=== PATIENT | female | born 1935 | race Caucasian/White ===

== ENCOUNTER 2022-03-06 13:12 | Emergency (ER) | payer OTHER, SELFPAY ==
[2022-03-06 13:37] VITALS: BP 158/71; PULSE 71; RESP 18; TEMP 36.4; O2SAT 96; BMI 22.7
--- NOTE | 2022-03-06 16:08 | CRLHL7_ITS ---
For Patients: As a result of the Century Cures Act, medical imaging exams and procedure reports are released immediately into your electronic medical record. You may view this report before your referring provider. If you have questions, please contact your health care provider. INDICATION: Shortness of breath. TECHNIQUE: Chest 2 views. COMPARISON: None. FINDINGS: No focal consolidation, pleural effusion, or pneumothorax. Minimal linear atelectasis or scarring in the lung bases. Biapical pleural scarring. Normal heart size and pulmonary vascularity. Degenerative changes of the spine. Age-indeterminate superior endplate compression fracture of L1. IMPRESSION: 1. No acute cardiopulmonary findings. 2. Age-indeterminate superior endplate compression fracture of L1. Dictated by Nirmala Davey MD @ 03/06/2022 4:52:28 PM (Electronically Signed)
--- NOTE | 2022-03-06 16:09 | ED.GENADULT ---
HPI - General Adult General Chief complaint: Unspecified Complaint, Adult Stated complaint: Irregular breathing Time Seen by Provider: 03/06/22 16:05 History of Present Illness HPI narrative: Pt is a 87 year old woman who had COVID with mild symptoms at home treated with Paxlovid 4 weeks ago who comes in with 24 hours of nonproductive cough and fullness in her chest. No nausea, vomiting or diaphoresis. Cough is nonproductive with no hemoptysis. Pt has had no recent COVID expostures and otherwise has been feeling well since recovering from COVID. Pt states her symptoms are quite mild but would like to be checked out as [place] and wants to make sure that she is well. No overt chest pain. Related Data Allergies Allergy/AdvReac Type Severity Reaction Status Date / Time No Known Drug Allergies Allergy Verified 03/06/22 13:43 Review of Systems Status of ROS: Reports: 10 or more systems reviewed and unremarkable except as noted in History and below [facility] Medical History (Updated 03/06/22 @ 17:34 by Wai Anthony MD) Hypertension Social History Smoking Status: Never smoker Do you use any of these nicotine containing products: None Second hand tobacco smoke exposure: Yes How often do you have a drink containing alcohol: never How often do you have six or more drinks on one occasion: Never AUDIT-C Alcohol total score: 0 Non-prescribed substance use: denies use Exam Narrative: Exam Narrative: EXAM GENERAL: Patient appears comfortable and well. THYROID: no thyroid nodules or thyromegaly. LYMPH: No supraclavicular or cervical lymphadenopathy. SKIN: Visible skin seen during exam normal or with benign process only. EXT: No dependent lower extremity pedal edema. HEART: Regular rate and rhythm with no murmurs, rubs, or gallops. LUNGS: Clear to auscultation bilaterally with no crackles or wheezes. ABD: Soft, non tender, non distended. PSYCH: Good eye contact, speech is not pressured. Const: Vital Signs, click to edit/add: Vital Signs - 24 hr 03/06/22 13:37 Temperature 97.6 F Pulse Rate [Pulse Oximeter] 71 Respiratory Rate 18 Blood Pressure [Ri ght Upper Arm] 158/71 H Pulse Oximetry 96 Oxygen Delivery Me thod Room Air Course Course Hospital Course: Pt seen and examined. Chest X ray, CBC, BMP, Troponin, D-dimer ordered. COVID testing not repeated as symptoms are unlikely COVID and test may still be positive from previous illness. Reevaluation(s) Reevaluation #1: Pt's chest x ray is normal for acute infection per my and radiology review. Labs show mild anemia which is likely chronic. Negative troponin, D dimer and electrolytes. EKG showed no acute ST or T wave changes upon my review. Time: 17:30 Vital Signs Vital signs: Initial Vital Signs Temperature 97.6 F 03/06/22 13:37 Temperature Source Temporal Artery Scan 03/06/22 13:37 Pulse Rate 71 03/06/22 13:37 Pulse Rhythm 03/06/22 13:37 Respiratory Rate 18 03/06/22 13:37 Blood Pressure 158/71 H 03/06/22 13:37 Blood Pressure Mean 100 03/06/22 13:37 Blood Pressure Position Sitting 03/06/22 13:37 Pulse Oximetry 96 03/06/22 13:37 Oxygen Delivery Method 03/06/22 13:37 Vital Signs Temperature 97.6 F 03/06/22 13:37 Pulse Rate 71 03/06/22 13:37 Respiratory Rate 18 03/06/22 13:37 Blood Pressure 158/71 H 03/06/22 13:37 Pulse Oximetry 96 03/06/22 13:37 Oxygen Delivery Method 03/06/22 13:37 Temperature 97.6 F 03/06/22 13:37 Pulse Rate 71 03/06/22 13:37 Respiratory Rate 18 03/06/22 13:37 Blood Pressure 158/71 H 03/06/22 13:37 Pulse Oximetry 96 03/06/22 13:37 Oxygen Delivery Method 03/06/22 13:37 Medical Decision Making MDM Narrative Medical decision making narrative: Pt is an 87 year old woman who comes in with mild congestion 4 weeks after being treated for COVID. Vitals are stable with exeption of mildly elevated BP. Lab, EKG and Xrays reassuring. COVID testing not repeated. Pt feeling well and would like to go home. Differential Diagnosis Differential Diagnosis: Pnuemonia, URI, CHF, NE, Angian, Pneumothorax,PE Lab Data Labs: Lab Results 03/06/22 03/06/22 03/06/22 Range/Units 16:39 16:39 16:39 WBC 5.97 (4.50-11.00) K/uL RBC 3.72 L (4.00-5.20) m/uL Hgb 11.6 L (12.0-16.0) gm/dL Hct 34.9 (33.0-51.0) % MCV 94 (80-100) fL MCH 31 (26-34) pg MCHC 33 (32-36) gm/dL RDW Coeff of Jose 12.5 (11.5-15.5) % Plt Count 249 (140-440) K/uL Neut % (Auto) 60.3 (42.0-72.0) % Lymph % (Auto) 26.6 (20-44) % [place] % (Auto) 10.1 (0.0-11.0) % Eos % (Auto) 2.7 (0.0-7.0) % Baso % (Auto) 0.3 (0.0-3.0) % Neut # (Auto) 3.60 (1.7-7.0) K/uL Lymph # (Auto) 1.59 (0.90-2.90) K/uL [place] # (Auto) 0.60 (0.00-0.90) K/UL Eos # (Auto) 0.16 (0.00-0.50) K/uL Baso # (Auto) 0.02 (0.00-0.30) K/uL Abs Immat Gran (auto) 0.00 (0.00-0.30) K/uL D-Dimer Quant (PE/DVT) 0.41 (0.00-0.50) ug/ml Sodium 139 (135-149) mmol/L Potassium 4.4 (3.6-5.1) mmol/L Chloride 102 (96-114) mmol/L Carbon Dioxide 27 (20-32) mmol/L BUN 18 (7-30) mg/dL Creatinine 0.8 (0.5-1.5) mg/dL Estimated Creat Clear 33.41 Estimated GFR 72 ml/min Glucose 132 H (60-115) mg/dL Calcium 10.1 (8.4-10.6) mg/dL Troponin I < 0.01 L (0.01-0.04) ng/mL Discharge Plan Discharge Clinical Impression: URI (upper respiratory infection) Condition: Stable Instructions: Viral Syndrome (ED) Additional Instructions: Rest Fluids Tyelnol Motrin Activity Level: Activity as Tolerated Discharge Diet: Regular Follow Up/Referrals: Provider,Not a Local [Primary Care Provider] - Stand Alone Forms: [employer] Info Instructions
[2022-03-06 16:52] LABS: Basophils Absolute Auto 0.02 K/uL (0.00-0.30); Basophils Percent Auto 0.3 % (0.0-3.0); Eosinophils Absolute Auto 0.16 K/uL (0.00-0.50); Eosinophils Percent Auto 2.7 % (0.0-7.0); Hematocrit 34.9 % (33.0-51.0); Hemoglobin* 11.6 gm/dL (12.0-16.0); Lymphocytes Absolute Auto 1.59 K/uL (0.90-2.90); Lymphocytes Percent Auto 26.6 % (20-44); Mean Corpuscular HGB Conc 33 gm/dL (32-36); Mean Corpuscular Hemoglobin 31 pg (26-34); Mean Corpuscular Volume 94 fL (80-100); Monocytes Percent Auto 10.1 % (0.0-11.0); Neutrophils Percent Auto 60.3 % (42.0-72.0); Platelet Count* 249 K/uL (140-440); RDW Coefficient of Variation % 12.5 % (11.5-15.5); Red Blood Count 3.72 m/uL (4.00-5.20); White Blood Count* 5.97 K/uL (4.50-11.00)
[2022-03-06 17:00] LABS: Slide Review Reflex No
[2022-03-06 17:02] LABS: Chloride* 102 mmol/L (96-114); Potassium* 4.4 mmol/L (3.6-5.1); Sodium* 139 mmol/L (135-149)
[2022-03-06 17:04] LABS: D Dimer Quantitative* 0.41 ug/ml (0.00-0.50)
[2022-03-06 17:05] LABS: Blood Urea Nitrogen* 18 mg/dL (7-30); Carbon Dioxide* 27 mmol/L (20-32); Creatinine* 0.8 mg/dL (0.5-1.5); Est. Creatinine Clearance* 33.41; Estimated Glomerular Filt Rate 72 ml/min
[2022-03-06 17:06] LABS: Calcium* 10.1 mg/dL (8.4-10.6); Glucose* 132 mg/dL (60-115)
[2022-03-06 17:17] LABS: Troponin I* < 0.01 ng/mL (0.01-0.04)
== END 2022-03-06 17:44 | disposition home or self-care (01) ==
PROVIDERS: Emergency Provider Internal Medicine
DX: J06.9 Acute upper respiratory infection, unspecified (principal); I10 Essential (primary) hypertension
CPT/HCPCS: 36415; 71046; 80048; 84484; 85025; 85379; 93005; 99283; 99284

== ENCOUNTER 2022-09-28 13:01 | Outpatient (CLI) | payer OTHER, SELFPAY ==
--- NOTE | 2022-09-28 13:45 | CRLHL7_ITS ---
For Patients: As a result of the Century Cures Act, medical imaging exams and procedure reports are released immediately into your electronic medical record. You may view this report before your referring provider. If you have questions, please contact your health care provider. Indication: POST-OPERATIVE PAIN, S/P LAMINECTOMY Technique: Noncontrast sagittal and axial T1, T2, and sagittal STIR sequences are provided. Postcontrast sagittal and axial T1 weighted images were obtained after administration of 15 ml Dotarem IV contrast. Comparison: 10/13/2021 MRI Findings: Stable grade 1 anterolisthesis at L4-5 and L5-S1. Stable chronic L1 superior endplate compression fracture without retropulsion. No acute fractures. No prevertebral or paraspinal edema. Again noted is a T2 hyperintense cystic structure presumably located in the left retroperitoneum. Atrophy of paraspinal muscles. The conus medullaris is normal in signal and location. T12-L1: No significant spinal canal stenosis or neural foramen narrowing. L1-2: Mild disc bulge. No significant spinal canal stenosis or neural foramen narrowing. L2-3: Disc bulge. Moderate facet arthrosis and bilateral ligamentum flavum buckling stable mild indentation of thecal sac without significant spinal canal stenosis or neural foramina narrowing. L3-4: Interval laminectomy postoperative changes. Residual disc bulge and moderate facet arthrosis. There is a new 6 mm right facet joint synovial cyst that protrudes into the epidural space. The spinal canal is adequate. Moderate neural foramina narrowing bilaterally. Diffuse enhancement of granulation tissue in the dorsal epidural space at the laminectomy site. L4-5: Grade 1 anterolisthesis. Unroofing of the disc. Advanced facet arthrosis. The spinal canal is adequate. Severe left and moderate right neural foramen narrowing. L5-S1: Grade 1 anterolisthesis. Unroofing of the disc. Advanced bilateral facet arthrosis. There is a new 11 x 9 x 12 mm T2 hyperintense peripherally enhancing structure in the left lateral recess that results in severe left lateral recess stenosis. Severe left neural foramen with impingement of the left L5 nerve roots. Mild to moderate right neural foramen narrowing. Impression: 1. No acute osseous abnormality. Stable alignment with grade 1 anterolisthesis at L4-5. Stable chronic L1 superior endplate compression fracture. 2. At L3-4, interval laminectomy with expected enhancement of granulation tissue at the surgical site. New small right facet joint synovial cyst without significant spinal canal stenosis. Moderate neural foramen narrowing bilaterally. 3. At L4-5, stable advanced facet arthrosis, severe left and moderate right neural foramen stenosis. 4. At L5-S1, new oval T2 hyperintense structure in the left lateral recess may represent facet joint synovial cyst or disc extrusion the results and severe left lower recess stenosis and possible impingement of the left L5 nerve roots. Severe left neural from narrowing and mild-moderate right neural foramen narrowing. Dictated by Yuri Gold MD @ 09/29/2022 2:46:02 PM (Electronically Signed)
== END 2022-09-28 13:02 | disposition home or self-care (01) ==
LOC: MRI 13:06
PROVIDERS: PCP Student in an Organized Health Care Education/Training Program; Visit Provider Physician Assistant
DX: G89.18 Other acute postprocedural pain (principal); M51.26 Other intervertebral disc displacement, lumbar region; M47.816 Spondylosis without myelopathy or radiculopathy, lumbar region; Z98.890 Other specified postprocedural states
CPT/HCPCS: 72158; A9575

== ENCOUNTER 2023-01-17 13:45 | Outpatient (RCR) | payer OTHER, SELFPAY | END 2023-04-23 15:29 | disposition home or self-care (01) | PROVIDERS: PCP Student in an Organized Health Care Education/Training Program; Visit Provider Neurological Surgery | DX: M48.062 Spinal stenosis, lumbar region with neurogenic claudication (principal); M54.16 Radiculopathy, lumbar region; Z98.890 Other specified postprocedural states; M54.2 Cervicalgia; G89.29 Other chronic pain; M62.81 Muscle weakness (generalized); R29.3 Abnormal posture; Z74.09 Other reduced mobility; Z51.89 Encounter for other specified aftercare | CPT/HCPCS: 97110; 97161; 97162; 97530 ==